=== PATIENT | male | born 1955 | race Caucasian/White ===

== ENCOUNTER 2023-02-16 13:15 | Outpatient (CLI) | payer OTHER, SELFPAY ==
--- NOTE | ~2023-02-16 | CT_ITS ---
EXAMINATION: CT abdomen pelvis w con INDICATION: Scrotal enlargement TECHNIQUE: Computed tomographic images of the abdomen and pelvis were obtained after the administrati on of 100 cc of Omnipaque 350 intravenous contrast. The dose-length product (DLP) was 1288.71 mGy-cm. Automated exposure control and iterative reconstruction technique were employed. COMPARISON: None available FINDINGS: Calcified granulomas are noted in the visualized lung bases. The heart size is normal. Ther e is calcified coronary artery atherosclerosis. Subendocardial fat deposition along the inferior wall of the left ventricle suggests prior myocardial infarction. There is a small sliding hiatal hernia. Punctate calcifications in an otherwise normal spleen likely represent healed granulomatous disease. The liver, pancreas, gallbladder, and adrenal glands are normal. The right kidney is unremarkable. Th ere is a 9 mm cyst of the left kidney. No pathologically enlarged abdominal or pelvic lymph nodes are identified. There is calcified atherosclerosis of the aorta and many of the other arteries. No free intraperitoneal gas or evidence of bowel obstruction. The appendix is normal. There are moderate-size d left and small right hydroceles. There is severe lumbar spondylosis. IMPRESSION: 1. Moderate-sized left and small right hydroceles. Reviewed, dictated and finalized at location L. [facility] [employer]
== END 2023-02-16 13:16 | disposition home or self-care (01) ==
PROVIDERS: PCP Family Medicine; Visit Provider Physician Assistant Medical
DX: N43.3 Hydrocele, unspecified (principal)
CPT/HCPCS: 74177; Q9967